=== PATIENT | male | born 1935 | race Caucasian/White ===

== ENCOUNTER 2018-12-22 21:40 | Inpatient (IN) | payer MEDICARE, OTHER ==
[~2018-12-22] VITALS: Ht 157.5 cm; Wt 59.0 kg
[~2018-12-22 21:40] MED LIST: ACET1TAB14 PO; ATOR10TA87 PO; BACL20TA PO; CARI350T27 PO; CETI10CA PO; DIPH25CA83 PO; FERR325T28 PO; GABA-532 PO; IBUP-1984 PO; METO25TA6 PO; NITR0.4T51 SL; POTA10TA15 PO; RABE20TA18 PO; RANI150T8 PO; TRIA1CAP6 PO
[2018-12-22 22:41] LABS: BASOPHILS % (AUTO) 0.5 % (0-1); EOSINOPHILS % (AUTO) 0 % (0-6); HEMATOCRIT 35.9 % (42.0-52.0); HEMOGLOBIN 12.1 g/dl (14.0-17.9); LYMPHOCYTES # (AUTO) 1.3 X10'3 (1.1-4.8); LYMPHOCYTES % (AUTO) 15.5 % (21-51); MEAN CORPUSCULAR HEMOGLOBIN 29.2 PG (27.0-31.0); MEAN CORPUSCULAR HGB CONC 33.6 g/dL (33.0-36.5); MEAN CORPUSCULAR VOLUME 87.1 FL (78-98); MONOCYTES # (AUTO) 0.4 X10'3 (0-0.9); NEUTROPHILS # (AUTO) 6.6 X10'3 (1.8-7.7); PLATELET COUNT 390 X10'3 (140-440); RED BLOOD COUNT 4.13 X10'6 (4.70-6.10); RED CELL DISTRIBUTION WIDTH 13.1 % (11.5-14.5); WHITE BLOOD COUNT 8.4 X10'3 (4.5-11.0)
[2018-12-22 22:52] LABS: ALANINE AMINOTRANSFERASE 16 U/L (12-78); ALBUMIN 2.8 G/DL (3.4-5.0); ALBUMIN/GLOBULIN RATIO 0.7 (1.1-1.5); ALKALINE PHOSPHATASE 96 IU/L (46-116); ANION GAP 11 (8-16); ASPARTATE AMINO TRANSFERASE 11 U/L (10-37); BILIRUBIN,TOTAL 0.5 MG/DL (0.1-1.0); BLOOD UREA NITROGEN 29 MG/DL (7-18); CHLORIDE 97 MMOL/L (99-107); CREATININE 1.32 MG/DL (0.60-1.10); GLUCOSE 117 MG/DL (70-104); SODIUM 134 MMOL/L (135-145); TOTAL CARBON DIOXIDE 26.4 MMOL/L (24-32); TOTAL PROTEIN 7.1 G/DL (6.4-8.2); eGFR 52 ML/MIN
[2018-12-22 22:55] LABS: POTASSIUM 2.7 MMOL/L (3.5-5.1)
[2018-12-22] MEDS ORDERED: potassium Cl 10 mEq/100mL bag IV ONE (23:00)
[2018-12-22] MEDS ORDERED: magnesium 2GM in 50ml NS 50 ML IV ONE (23:00)
[2018-12-22 23:12] LABS: CLARITY,URINE CLEAR (Clear); COLOR,URINE YELLOW (Yellow); GLUCOSE, URINE NEGATIVE (Neg); KETONES,URINE TRACE mg/dl (Neg); LEUKOCYTE ESTERASE ,URINE NEGATIVE (Neg); NITRITES, URINE NEGATIVE (Neg); OCCULT BLOOD,URINE NEGATIVE (Neg); PH,URINE 6.5 (4.8-8.0); PROTEIN,URINE 30 mg/dl (Neg); UROBILINOGEN,URINE 0.2 E.U/dL (0.2-1.0)
[2018-12-22 23:17] LABS: UA COLLECTION TYPE NON-SPECIFIED
[2018-12-22 23:19] LABS: BACTERIA,URINE NONE SEEN /HPF (Neg); HYALINE CASTS 0-3 /LPF (NEGATIVE); MUCUS STRANDS NONE SEEN /LPF (Neg); RBC,URINE NONE SEEN /HPF (0-2); SQUAMOUS EPITHELIAL CELL,UR FEW /LPF (FEW); WBC,URINE NONE SEEN /HPF (0-4)
[2018-12-22] MEDS ORDERED: ondansetron/PF 4mg/2ml inj IV ONE (23:35)
[2018-12-22] MEDS ORDERED: pantoprazole IV 80 MG in normal saline 100ml IV soln 100 ML IV ONE (23:35)
[2018-12-22] MEDS ORDERED: morphine 4 MG/ML inj SYRINge IV ONE (23:35)
[2018-12-22] MEDS ORDERED: METH750T3 PO (23:44)
[2018-12-22] MEDS ORDERED: IBUP-1986 PO (23:44)
[2018-12-22] MEDS: pantoprazole 40MG/NS 100ML BAG 100 ML IV SCH (23:48)
[2018-12-22] MEDS ORDERED: GABA-532 PO (23:54)
[2018-12-23] MEDS ORDERED: potassium Cl 10 mEq/100mL bag IV ONE (00:25)
[2018-12-23] MEDS: pantoprazole 40MG/NS 100ML BAG 100 ML IV SCH ×2 (01:00→05:09)
[2018-12-23] MEDS ORDERED: morphine 4 MG/ML inj SYRINge IV ONE (01:35)
[2018-12-23] MEDS ORDERED: magnesium 4gm in 100ml NS 100 ML IV PRN (01:45)
[2018-12-23] MEDS ORDERED: mag hydrox/Alum hydrox/simeth 30ml oral suspension PO PRN (01:45)
[2018-12-23] MEDS ORDERED: magnesium 2GM in 50ml NS 50 ML IV PRN (01:45)
[2018-12-23] MEDS ORDERED: nitroGLYCERIN 0.4mg SUBLingual tab SL PRN (01:45)
[2018-12-23] MEDS ORDERED: potassium Cl 20 mEq SR tablet PO PRN (01:45)
[2018-12-23] MEDS ORDERED: acetaminophen 325mg tablet PO PRN (01:45)
[2018-12-23] MEDS ORDERED: potassium CL 10mEq/100ml bag 100 ML IV PRN ×2 (01:45)
[2018-12-23] MEDS: normal saline 1000ml 1,000 ML IV SCH ×2 (01:53→21:40)
[2018-12-23] MEDS: cyclobenzaprine 10mg tablet PO PRN ×3 (02:14→17:12)
[2018-12-23] MEDS: ondansetron/PF 4mg/2ml inj IV PRN ×3 (02:14→17:13)
[2018-12-23] MEDS ORDERED: HYDROmorphone inj. 0.5 MG/0.5 ML DISP.SYRIN IV PRN (02:20)
--- NOTE | 2018-12-23 02:30 | NUR ---
Patient in room ORTHO 4020. I have received report from STEFANIE Orantes and had the opportunity to ask questions and assume patient care.
[2018-12-23] MEDS: HYDROmorphone 1 mg/ml syringe IV PRN ×5 (02:55→21:35)
[2018-12-23 03:22] VITALS: BP 171/70
[2018-12-23 06:00] VITALS: BP 157/73
[2018-12-23] MEDS ORDERED: pantoprazole 40MG/NS 100ML BAG 100 ML IV SCH (06:00)
--- NOTE | 2018-12-23 06:10 | NUR ---
Patient in room ORTHO 4020. I have received report from Gracie WATTS and had the opportunity to ask questions and assume patient care.
[2018-12-23 06:11] LABS: BASOPHILS % (AUTO) 0.4 % (0-1); EOSINOPHILS % (AUTO) 0.3 % (0-6); HEMATOCRIT 31.8 % (42.0-52.0); HEMOGLOBIN 10.7 g/dl (14.0-17.9); LYMPHOCYTES # (AUTO) 1.3 X10'3 (1.1-4.8); LYMPHOCYTES % (AUTO) 18.2 % (21-51); MEAN CORPUSCULAR HEMOGLOBIN 29.7 PG (27.0-31.0); MEAN CORPUSCULAR HGB CONC 33.8 g/dL (33.0-36.5); MEAN CORPUSCULAR VOLUME 87.8 FL (78-98); MEAN PLATELET VOLUME 7.1 FL (7.4-10.4); MONOCYTES # (AUTO) 0.5 X10'3 (0-0.9); MONOCYTES % (AUTO) 7.1 % (2-12); NEUTROPHILS # (AUTO) 5.3 X10'3 (1.8-7.7); PLATELET COUNT 338 X10'3 (140-440); RED BLOOD COUNT 3.62 X10'6 (4.70-6.10); WHITE BLOOD COUNT 7.1 X10'3 (4.5-11.0)
--- NOTE | 2018-12-23 06:19 | NUR ---
Gave report to Arabella WATTS with Gracie WATTS.
[2018-12-23 07:57] LABS: ALBUMIN 2.3 G/DL (3.4-5.0); ANION GAP 9 (8-16); BLOOD UREA NITROGEN 25 MG/DL (7-18); BUN/CREATININE RATIO 23.6 (5.4-32.0); CALCIUM 8.4 MG/DL (8.5-10.1); CHLORIDE 104 MMOL/L (99-107); CREATININE 1.06 MG/DL (0.60-1.10); GLUCOSE 99 MG/DL (70-104); SODIUM 140 MMOL/L (135-145); TOTAL CARBON DIOXIDE 26.6 MMOL/L (24-32); eGFR 67 ML/MIN
[2018-12-23 08:00] LABS: POTASSIUM 2.8 MMOL/L (3.5-5.1)
--- NOTE | 2018-12-23 08:12 | NUR ---
PAGER ID: [phone] MESSAGE: RE: [id number] Sha Joe. Critical K+ 2.8, patient is on protocol, replacing now. [place] [phone]
[2018-12-23] MEDS: K and/or MAG REPLACEMENT MC SCH (08:58)
[2018-12-23] MEDS: potassium Cl 20 mEq SR tablet PO PRN ×3 (08:58→17:08)
[2018-12-23] MEDS: triamterene/HCTZ 37.5/25mg tablet PO SCH (08:58)
[2018-12-23 10:00] VITALS: BP 140/72
[2018-12-23 10:42] LABS: BASOPHILS % (AUTO) 0.7 % (0-1); EOSINOPHILS # (AUTO) 0.1 X10'3 (0-0.9); EOSINOPHILS % (AUTO) 1.4 % (0-6); HEMATOCRIT 32.9 % (42.0-52.0); HEMOGLOBIN 10.9 g/dl (14.0-17.9); LYMPHOCYTES # (AUTO) 1.3 X10'3 (1.1-4.8); LYMPHOCYTES % (AUTO) 20.7 % (21-51); MEAN CORPUSCULAR HEMOGLOBIN 28.7 PG (27.0-31.0); MEAN CORPUSCULAR HGB CONC 33.2 g/dL (33.0-36.5); MEAN CORPUSCULAR VOLUME 86.5 FL (78-98); MONOCYTES # (AUTO) 0.5 X10'3 (0-0.9); MONOCYTES % (AUTO) 8.2 % (2-12); NEUTROPHILS # (AUTO) 4.4 X10'3 (1.8-7.7); PLATELET COUNT 299 X10'3 (140-440); RED CELL DISTRIBUTION WIDTH 13.1 % (11.5-14.5); WHITE BLOOD COUNT 6.4 X10'3 (4.5-11.0)
--- NOTE | 2018-12-23 11:58 | NUR ---
Malnutrition consult: Pt admit w/ coffee ground emesis, intractable N/V 5 days prior found to have UGIB r/t gastritis from ibuprofen per MD note. Pending EGD. Pt advanced to regular diet from NPO pending first meal but eats slow able to tolerate applesauce per RN. Pt unable to wake during RD visit. Current wt is pt stated w/ no other wt hx, no edema/wounds, mild weakness, and mild visible muscle wasting to temples. At this time pt lacks at least 2 minimum malnutrition criteria; will monitor PO hx for additional criteria this admit. Addendum: 12/23/18 at [address] Amended: Links added.
--- NOTE | 2018-12-23 12:37 | NUR ---
Wound consult: Pt has spinal abrasion w/ skin intact no open wounds noted. See prior note for additional nutrition status; malnutrition criteria pending. Addendum: 12/23/18 at [address] Amended: Links added.
[2018-12-23 13:22] LABS: BASOPHILS % (AUTO) 0.4 % (0-1); EOSINOPHILS # (AUTO) 0.1 X10'3 (0-0.9); HEMOGLOBIN 11.8 g/dl (14.0-17.9); LYMPHOCYTES % (AUTO) 25.1 % (21-51); MEAN CORPUSCULAR HEMOGLOBIN 29.4 PG (27.0-31.0); MEAN CORPUSCULAR HGB CONC 33.6 g/dL (33.0-36.5); MEAN CORPUSCULAR VOLUME 87.6 FL (78-98); MEAN PLATELET VOLUME 7.4 FL (7.4-10.4); MONOCYTES # (AUTO) 0.4 X10'3 (0-0.9); MONOCYTES % (AUTO) 5.5 % (2-12); NEUTROPHILS # (AUTO) 5.3 X10'3 (1.8-7.7); PLATELET COUNT 326 X10'3 (140-440); WHITE BLOOD COUNT 7.8 X10'3 (4.5-11.0)
[2018-12-23 15:54] LABS: BASOPHILS % (AUTO) 0.3 % (0-1); EOSINOPHILS # (AUTO) 0.1 X10'3 (0-0.9); EOSINOPHILS % (AUTO) 1.7 % (0-6); HEMATOCRIT 32.5 % (42.0-52.0); HEMOGLOBIN 10.8 g/dl (14.0-17.9); LYMPHOCYTES # (AUTO) 1.3 X10'3 (1.1-4.8); LYMPHOCYTES % (AUTO) 19.7 % (21-51); MEAN CORPUSCULAR HEMOGLOBIN 29.1 PG (27.0-31.0); MEAN CORPUSCULAR HGB CONC 33.3 g/dL (33.0-36.5); MEAN CORPUSCULAR VOLUME 87.5 FL (78-98); MEAN PLATELET VOLUME 6.9 FL (7.4-10.4); MONOCYTES # (AUTO) 0.5 X10'3 (0-0.9); MONOCYTES % (AUTO) 7.3 % (2-12); NEUTROPHILS # (AUTO) 4.9 X10'3 (1.8-7.7); PLATELET COUNT 298 X10'3 (140-440); RED BLOOD COUNT 3.71 X10'6 (4.70-6.10); RED CELL DISTRIBUTION WIDTH 13.3 % (11.5-14.5); WHITE BLOOD COUNT 6.8 X10'3 (4.5-11.0)
[2018-12-23 18:00] VITALS: BP 151/68
[2018-12-23 18:24] LABS: BASOPHILS % (AUTO) 0.3 % (0-1); EOSINOPHILS # (AUTO) 0.1 X10'3 (0-0.9); HEMATOCRIT 33.5 % (42.0-52.0); HEMOGLOBIN 11.2 g/dl (14.0-17.9); LYMPHOCYTES # (AUTO) 1.5 X10'3 (1.1-4.8); LYMPHOCYTES % (AUTO) 23.3 % (21-51); MEAN CORPUSCULAR HEMOGLOBIN 29.3 PG (27.0-31.0); MEAN CORPUSCULAR HGB CONC 33.6 g/dL (33.0-36.5); MEAN CORPUSCULAR VOLUME 87.3 FL (78-98); MEAN PLATELET VOLUME 7.2 FL (7.4-10.4); MONOCYTES # (AUTO) 0.4 X10'3 (0-0.9); MONOCYTES % (AUTO) 6.4 % (2-12); NEUTROPHILS # (AUTO) 4.4 X10'3 (1.8-7.7); PLATELET COUNT 316 X10'3 (140-440); RED BLOOD COUNT 3.84 X10'6 (4.70-6.10); WHITE BLOOD COUNT 6.5 X10'3 (4.5-11.0)
--- NOTE | 2018-12-23 18:25 | NUR ---
Problems reprioritized. Patient report given, questions answered & plan of care reviewed with Gracie WATTS.
--- NOTE | 2018-12-23 18:57 | NUR ---
Patient in room ORTHO 4020. I have received report from STEFANIE Villela and had the opportunity to ask questions and assume patient care.
[2018-12-23] MEDS: docusate sod 100mg capsule PO PRN (21:40)
[2018-12-23 22:00] VITALS: BP 140/67
--- NOTE | 2018-12-24 00:56 | NUR ---
phoned Wendie for Gracie WATTS, asked to d/c q6 CBC draws for pt. he has had no signs of active bleeding, stable H/H. instructed to d/c q6 CBC, continue AM CBC lab draws.
[2018-12-24] MEDS: normal saline 1000ml 1,000 ML IV SCH (02:11)
[2018-12-24] MEDS: cyclobenzaprine 10mg tablet PO PRN ×2 (02:14→10:58)
[2018-12-24] MEDS: HYDROmorphone 1 mg/ml syringe IV PRN ×2 (02:14→06:27)
[2018-12-24] MEDS ORDERED: benzocaine/menthol oral lozeng 1 EACH BOX MM PRN (05:30)
[2018-12-24 06:27] LABS: ALANINE AMINOTRANSFERASE 18 U/L (12-78); ALBUMIN 2.3 G/DL (3.4-5.0); ALBUMIN/GLOBULIN RATIO 0.6 (1.1-1.5); ALKALINE PHOSPHATASE 79 IU/L (46-116); ANION GAP 6 (8-16); ASPARTATE AMINO TRANSFERASE 18 U/L (10-37); BILIRUBIN,TOTAL 0.4 MG/DL (0.1-1.0); BLOOD UREA NITROGEN 18 MG/DL (7-18); BUN/CREATININE RATIO 17.3 (5.4-32.0); CALCIUM 8.7 MG/DL (8.5-10.1); CHLORIDE 103 MMOL/L (99-107); CREATININE 1.04 MG/DL (0.60-1.10); GLUCOSE 90 MG/DL (70-104); MAGNESIUM 1.9 MG/DL (1.5-2.4); POTASSIUM 4.3 MMOL/L (3.5-5.1); SODIUM 135 MMOL/L (135-145); TOTAL CARBON DIOXIDE 25.7 MMOL/L (24-32); TOTAL PROTEIN 5.9 G/DL (6.4-8.2); eGFR 69 ML/MIN
[2018-12-24 06:30] VITALS: BP 158/66
--- NOTE | 2018-12-24 06:30 | NUR ---
Problems reprioritized. Patient report given, questions answered & plan of care reviewed with STEFANIE Tapia.
[2018-12-24] MEDS: docusate sod 100mg capsule PO PRN (06:32)
--- NOTE | 2018-12-24 06:42 | NUR ---
Patient in room ORTHO 4020. I have received report from Gracie and had the opportunity to ask questions and assume patient care.
[2018-12-24] MEDS: triamterene/HCTZ 37.5/25mg tablet PO SCH (07:10)
[2018-12-24] MEDS: K and/or MAG REPLACEMENT MC SCH (07:11)
[2018-12-24 08:04] LABS: BASOPHILS % (AUTO) 0.7 % (0-1); EOSINOPHILS # (AUTO) 0.5 X10'3 (0-0.9); HEMATOCRIT 30.3 % (42.0-52.0); HEMOGLOBIN 10.2 g/dl (14.0-17.9); LYMPHOCYTES # (AUTO) 1.6 X10'3 (1.1-4.8); LYMPHOCYTES % (AUTO) 23.6 % (21-51); MEAN CORPUSCULAR HEMOGLOBIN 29.2 PG (27.0-31.0); MEAN CORPUSCULAR HGB CONC 33.6 g/dL (33.0-36.5); MEAN CORPUSCULAR VOLUME 86.9 FL (78-98); MEAN PLATELET VOLUME 6.9 FL (7.4-10.4); MONOCYTES # (AUTO) 0.5 X10'3 (0-0.9); MONOCYTES % (AUTO) 7.3 % (2-12); NEUTROPHILS # (AUTO) 4.2 X10'3 (1.8-7.7); NEUTROPHILS % (AUTO) 61.4 % (42-75); PLATELET COUNT 295 X10'3 (140-440); RED BLOOD COUNT 3.49 X10'6 (4.70-6.10); RED CELL DISTRIBUTION WIDTH 12.8 % (11.5-14.5); WHITE BLOOD COUNT 6.9 X10'3 (4.5-11.0)
[2018-12-24] MEDS ORDERED: magnesium citrate 296ml oral solution PO ONE (08:45)
[2018-12-24 10:00] VITALS: BP 131/63
[2018-12-24] MEDS ORDERED: methylnaltrexone br 12mg/0.6ml inj***SubQ only SQ ONE (12:25)
--- NOTE | 2018-12-24 14:49 | NUR ---
F/u: Pt PO 50% avg past 2 meals decent given age. No edema/wounds, no significant weakness, and lack of additional malnutrition criteria at this time. Will monitor for additional criteria this admit. Addendum: 12/24/18 at [address] Amended: Links added.
[2018-12-24] MEDS ORDERED: COL100C PO (15:44)
[2018-12-24] MEDS ORDERED: MAGN800O PO (15:44)
--- NOTE | 2018-12-24 18:00 | NUR ---
Patient in room ORTHO 4020. I have received report from Regina WATTS and had the opportunity to ask questions and assume patient care. Patient finished dinner, will continue to monitor.
--- NOTE | 2018-12-24 18:13 | NUR ---
Problems reprioritized. Patient report given, questions answered & plan of care reviewed with faye.
--- NOTE | 2018-12-24 18:13 | NUR ---
IV dc'd. Scripts and follow up appointments gone over with pt. Verbalizes understanding. Pt has called to come and pick him up.
--- NOTE | 2018-12-24 18:25 | NUR ---
Patient escorted to [facility] due to discharge papers complete and IV removed on in anticipation of 's arrival to take patient home. Left with discharge instructions and belongings in hand. Patient alert and oriented and states he is headed home. Left at 1825 via wheelchair from unit.
== END 2018-12-24 18:25 | disposition home or self-care (01) | DRG 683 ==
LOC: ER 21:40 → ORTHO 4S 12-23 02:16 → CMPBEDREQ 12-23 02:19
PROVIDERS: ADMIT Family Medicine; ATTEND Internal Medicine
DX: N17.9 Acute kidney failure, unspecified (principal); E87.1 Hypo-osmolality and hyponatremia; K59.00 Constipation, unspecified; E87.6 Hypokalemia; E78.5 Hyperlipidemia, unspecified; I10 Essential (primary) hypertension; I25.10 Atherosclerotic heart disease of native coronary artery without angina pectoris; K21.9 Gastro-esophageal reflux disease without esophagitis; D64.9 Anemia, unspecified; G89.29 Other chronic pain; T40.605A Adverse effect of unspecified narcotics, initial encounter; E86.0 Dehydration; M54.5 Low back pain; K76.89 Other specified diseases of liver; Z79.899 Other long term (current) drug therapy; Z82.49 Family history of ischemic heart disease and other diseases of the circulatory system; Z82.5 Family history of asthma and other chronic lower respiratory diseases; I25.2 Old myocardial infarction; Z87.11 Personal history of peptic ulcer disease; Z88.6 Allergy status to analgesic agent; Z88.5 Allergy status to narcotic agent; Z88.0 Allergy status to penicillin; Z91.018 Allergy to other foods; Y92.89 Other specified places as the place of occurrence of the external cause
CPT/HCPCS: 36415; 74176; 80048; 80053; 81001; 83605; 83735; 84132; 85025; 85610; 86885; 86900; 86901; 87040; 87081; 96361; 96365; 96366; 96375; 99285; C9113; G0378; J1170; J2212; J2270; J2405; J3475; J3480; J7030

== ENCOUNTER 2021-04-17 10:26 | Inpatient (IN) | payer OTHER, MEDICARE ==
[~2021-04-17] VITALS: Ht 177.8 cm; Wt 72.3 kg
[~2021-04-17 10:26] MED LIST changes: -ATOR10TA87 PO; -BACL20TA PO; -CARI350T27 PO; -CETI10CA PO; +COL100C PO; -FERR325T28 PO; -IBUP-1984 PO; +IBUP-1986 PO; +MAGN24002 PO; +METH-798 PO; -METO25TA6 PO; -POTA10TA15 PO; -RABE20TA18 PO
[2021-04-17 10:54] LABS: BASOPHILS # (AUTO) 0.1 X10'3 (0-0.2); BASOPHILS % (AUTO) 1.2 % (0-1); EOSINOPHILS # (AUTO) 0.5 X10'3 (0-0.9); EOSINOPHILS % (AUTO) 6.5 % (0-6); HEMATOCRIT 32.9 % (42.0-52.0); LYMPHOCYTES % (AUTO) 27.6 % (21-51); MEAN CORPUSCULAR HGB CONC 33.6 g/dL (33.0-36.5); MEAN CORPUSCULAR VOLUME 92.4 FL (78-98); MEAN PLATELET VOLUME 7.1 FL (7.4-10.4); MONOCYTES # (AUTO) 0.3 X10'3 (0-0.9); MONOCYTES % (AUTO) 4.4 % (2-12); NEUTROPHILS # (AUTO) 4.3 X10'3 (1.8-7.7); NEUTROPHILS % (AUTO) 60.3 % (42-75); PLATELET COUNT 241 X10'3 (140-440); RED BLOOD COUNT 3.56 X10'6 (4.70-6.10); RED CELL DISTRIBUTION WIDTH 13.5 % (11.5-14.5); WHITE BLOOD COUNT 7.1 X10'3 (4.5-11.0)
[2021-04-17] MEDS ORDERED: ondansetron/PF 4mg/2ml inj IV ONE (11:05)
[2021-04-17] MEDS ORDERED: fentaNYL/PF 50MCG/1 ML 2ML syringe IV ONE (11:05)
[2021-04-17 11:09] LABS: D-DIMER 0.96 MG/L FEU (0-0.50)
[2021-04-17 11:13] LABS: ALANINE AMINOTRANSFERASE 14 U/L (12-78); ALBUMIN 3.5 G/DL (3.4-5.0); ALBUMIN/GLOBULIN RATIO 0.9 (1.1-1.5); ALKALINE PHOSPHATASE 87 IU/L (46-116); ANION GAP 10 (8-16); ASPARTATE AMINO TRANSFERASE 12 U/L (10-37); BILIRUBIN,TOTAL 0.5 MG/DL (0.1-1.0); BLOOD UREA NITROGEN 20 MG/DL (7-18); BUN/CREATININE RATIO 11.2 (5.4-32.0); CALCIUM 8.9 MG/DL (8.5-10.1); CHLORIDE 99 MMOL/L (99-107); CREATININE 1.79 MG/DL (0.60-1.10); GLUCOSE 100 MG/DL (70-104); POTASSIUM 5.3 MMOL/L (3.5-5.1); SODIUM 136 MMOL/L (135-145); TOTAL CARBON DIOXIDE 26.6 MMOL/L (24-32); TOTAL PROTEIN 7.4 G/DL (6.4-8.2); eGFR 36 ML/MIN
[2021-04-17] MEDS ORDERED: acetaminophen 325mg tablet PO PRN ×2 (12:45)
[2021-04-17] MEDS ORDERED: magnesium hydroxide 30ml (MOM) UD suspension PO PRN (12:45)
[2021-04-17] MEDS ORDERED: ondansetron/PF 4mg/2ml inj IV PRN (12:45)
[2021-04-17] MEDS ORDERED: mag hydrox/Alum hydrox/simeth 30ml oral suspension PO PRN (12:45)
[2021-04-17] MEDS ORDERED: morphine 2 MG/ML inj. syringe IV PRN (12:45)
[2021-04-17] MEDS ORDERED: HYDROcodone/acetaminophen 5mg/325mg tablet PO PRN (12:45)
[2021-04-17] MEDS ORDERED: nitroGLYCERIN 0.4mg SUBLingual tab SL PRN ×2 (12:45→12:50)
[2021-04-17] MEDS ORDERED: aminophylline 250mg/10ml inj. IV PRN (12:50)
[2021-04-17] MEDS ORDERED: regadenoson 0.4mg/5ml syringe IV ONE (12:50)
[2021-04-17] MEDS ORDERED: metoprolol tartrate 1mg/ml inj IV PRN (12:50)
[2021-04-17] MEDS ORDERED: CIME200T95 PO (13:07)
[2021-04-17] MEDS ORDERED: GABA300C PO (13:07)
[2021-04-17] MEDS ORDERED: METO50TA17 PO (13:07)
[2021-04-17] MEDS ORDERED: TRIA1TAB3 PO (13:17)
[2021-04-17] MEDS ORDERED: ISOS30TA84 PO (13:17)
[2021-04-17] MEDS: furosemide 20 MG/2 ML vial IV SCH ×2 (13:42→20:30)
[2021-04-17] MEDS ORDERED: acetaminophen w/codeine (60MG) #4 tablet PO PRN (16:30)
[2021-04-17] MEDS: HYDROcodone/acetaminophen 10/325mg tab PO PRN ×2 (17:37→23:14)
[2021-04-17] MEDS: gabapentin 300mg capsule PO SCH ×2 (17:37→20:31)
--- NOTE | 2021-04-17 20:06 | NUR ---
pt was ambulating to bathroom indep. ad started experiencing left sided chx pain that radiated to sternal region. repeat ekg ordered. denied sob and no signs of distress
[2021-04-17] MEDS: docusate sod 100mg capsule PO SCH (20:31)
[2021-04-17] MEDS: metoprolol tartrate 50mg tablet PO SCH (20:32)
[2021-04-17] MEDS: morphine 2 MG/ML inj. syringe IV PRN (22:24)
--- NOTE | 2021-04-17 22:48 | NUR ---
2-3 day old circular lesion noted on the base of patients lumbar spine. pt reports wound was there prior to arrival. no signs of infection noted. no drainage or active bleeding
--- NOTE | 2021-04-18 | NUR ---
Pt notified of NPO status and pt verbalized understanding. Pt denied pain at this time.
[2021-04-18 02:02] LABS: BASOPHILS # (AUTO) 0.1 X10'3 (0-0.2); BASOPHILS % (AUTO) 0.7 % (0-1); EOSINOPHILS # (AUTO) 0.3 X10'3 (0-0.9); EOSINOPHILS % (AUTO) 2.8 % (0-6); HEMOGLOBIN 13.8 g/dl (14.0-17.9); LYMPHOCYTES # (AUTO) 0.9 X10'3 (1.1-4.8); LYMPHOCYTES % (AUTO) 9.8 % (21-51); MEAN CORPUSCULAR HEMOGLOBIN 31.6 PG (27.0-31.0); MEAN CORPUSCULAR HGB CONC 34.5 g/dL (33.0-36.5); MEAN CORPUSCULAR VOLUME 91.7 FL (78-98); MEAN PLATELET VOLUME 7.4 FL (7.4-10.4); MONOCYTES # (AUTO) 0.4 X10'3 (0-0.9); MONOCYTES % (AUTO) 4.1 % (2-12); NEUTROPHILS # (AUTO) 7.6 X10'3 (1.8-7.7); NEUTROPHILS % (AUTO) 82.6 % (42-75); PLATELET COUNT 313 X10'3 (140-440); RED BLOOD COUNT 4.36 X10'6 (4.70-6.10); RED CELL DISTRIBUTION WIDTH 13.3 % (11.5-14.5); WHITE BLOOD COUNT 9.2 X10'3 (4.5-11.0)
[2021-04-18 02:09] LABS: ALBUMIN 3.9 G/DL (3.4-5.0); ANION GAP 10 (8-16); BLOOD UREA NITROGEN 22 MG/DL (7-18); BUN/CREATININE RATIO 12.7 (5.4-32.0); CALCIUM 9.9 MG/DL (8.5-10.1); CHLORIDE 97 MMOL/L (99-107); CREATININE 1.73 MG/DL (0.60-1.10); GLUCOSE 131 MG/DL (70-104); POTASSIUM 3.5 MMOL/L (3.5-5.1); SODIUM 137 MMOL/L (135-145); TOTAL CARBON DIOXIDE 30.4 MMOL/L (24-32); eGFR 38 ML/MIN
[2021-04-18] MEDS: HYDROcodone/acetaminophen 10/325mg tab PO PRN ×2 (06:50→20:49)
[2021-04-18 07:44] VITALS: BP 164/89
[2021-04-18] MEDS: enoxaparin 40mg/0.4ml syringe SUBCUT SCH (09:23)
[2021-04-18] MEDS: aspirin 81mg, enteric-coated 1 TAB TABLET.DR PO SCH (09:23)
[2021-04-18] MEDS: cyclobenzaprine 10mg tablet PO PRN ×2 (09:23→20:53)
[2021-04-18] MEDS: docusate sod 100mg capsule PO SCH ×2 (09:23→20:49)
[2021-04-18] MEDS: metoprolol tartrate 50mg tablet PO SCH ×2 (09:24→20:53)
[2021-04-18] MEDS: furosemide 20 MG/2 ML vial IV SCH ×2 (09:24→20:49)
[2021-04-18] MEDS: gabapentin 300mg capsule PO SCH ×4 (09:24→20:53)
[2021-04-18] MEDS: morphine 2 MG/ML inj. syringe IV PRN (09:25)
[2021-04-18 11:11] VITALS: BP 127/75
[2021-04-18 15:15] VITALS: BP 179/70
--- NOTE | 2021-04-18 21:00 | NUR ---
Pt in bed resting, voiced no complaints. Skin assessment done and lower back wound noted. Picture taken and placed in the chart. wound care consult ordered. call light and bedside table placed within reach. Pt instructed to call for assistance as needed.
[2021-04-18 22:00] VITALS: BP 155/65
[2021-04-19] VITALS (12 sets, daily range): BP systolic 112–147; BP diastolic 59–76
[2021-04-19] MEDS: HYDROcodone/acetaminophen 10/325mg tab PO PRN (03:57)
--- NOTE | 2021-04-19 06:21 | NUR ---
Patient in room PCU 3015. I have received report from STEFANIE Nuñez and had the opportunity to ask questions and assume patient care.
--- NOTE | 2021-04-19 06:43 | NUR ---
NPO status teaching reinforcement done, pt verbalized understanding.
[2021-04-19] MEDS ORDERED: aminophylline 250mg/10ml inj. IV PRN (06:45)
[2021-04-19] MEDS ORDERED: regadenoson 0.4mg/5ml syringe IV PRN (06:45)
[2021-04-19] MEDS ORDERED: nitroGLYCERIN 0.4mg SUBLingual tab SL PRN (06:45)
[2021-04-19] MEDS ORDERED: metoprolol tartrate 1mg/ml inj IV PRN (06:45)
[2021-04-19 07:44] LABS: ALBUMIN 3.9 G/DL (3.4-5.0); ANION GAP 13 (8-16); BLOOD UREA NITROGEN 35 MG/DL (7-18); BUN/CREATININE RATIO 16.5 (5.4-32.0); CALCIUM 10.5 MG/DL (8.5-10.1); CHLORIDE 92 MMOL/L (99-107); CREATININE 2.12 MG/DL (0.60-1.10); GLUCOSE 116 MG/DL (70-104); POTASSIUM 3.9 MMOL/L (3.5-5.1); SODIUM 134 MMOL/L (135-145); TOTAL CARBON DIOXIDE 29.4 MMOL/L (24-32); eGFR 30 ML/MIN
[2021-04-19 08:42] LABS: BASOPHILS # (AUTO) 0.1 X10'3 (0-0.2); BASOPHILS % (AUTO) 0.8 % (0-1); EOSINOPHILS # (AUTO) 0.2 X10'3 (0-0.9); HEMATOCRIT 39.1 % (42.0-52.0); HEMOGLOBIN 13.4 g/dl (14.0-17.9); LYMPHOCYTES # (AUTO) 1.7 X10'3 (1.1-4.8); LYMPHOCYTES % (AUTO) 18.2 % (21-51); MEAN CORPUSCULAR HEMOGLOBIN 31.7 PG (27.0-31.0); MEAN CORPUSCULAR HGB CONC 34.2 g/dL (33.0-36.5); MEAN CORPUSCULAR VOLUME 92.8 FL (78-98); MEAN PLATELET VOLUME 7.5 FL (7.4-10.4); MONOCYTES # (AUTO) 0.7 X10'3 (0-0.9); MONOCYTES % (AUTO) 7.3 % (2-12); NEUTROPHILS # (AUTO) 6.6 X10'3 (1.8-7.7); NEUTROPHILS % (AUTO) 71.7 % (42-75); PLATELET COUNT 294 X10'3 (140-440); RED BLOOD COUNT 4.22 X10'6 (4.70-6.10); RED CELL DISTRIBUTION WIDTH 13.6 % (11.5-14.5); WHITE BLOOD COUNT 9.2 X10'3 (4.5-11.0)
--- NOTE | 2021-04-19 09:31 | NUR ---
Noted pt on a mechanical soft chop all diet with pudding thick liquids. TC to RN though RN unavailable, message left with another RN regarding reassessing patient's diet order and need for thickened liquids vs ST consult for BSS if pt having difficulty swallowing. Addendum: 04/19/21 at [address] Amended: Links added.
[2021-04-19] MEDS: gabapentin 300mg capsule PO SCH ×2 (11:08→12:29)
[2021-04-19] MEDS: metoprolol tartrate 50mg tablet PO SCH (11:08)
[2021-04-19] MEDS: docusate sod 100mg capsule PO SCH (11:09)
[2021-04-19] MEDS: furosemide 20 MG/2 ML vial IV SCH (11:09)
--- NOTE | 2021-04-19 11:46 | NUR ---
Paged Jean Delvalle [phone] [id number] Candy resulted. No evidence of ischemia. Thanks Keisha [phone]
[2021-04-19] MEDS ORDERED: FURO-150 PO (12:17)
[2021-04-19] MEDS ORDERED: OMEP20CA15 PO (12:17)
[2021-04-19] MEDS: aspirin 81mg, enteric-coated 1 TAB TABLET.DR PO SCH (12:26)
[2021-04-19] MEDS: enoxaparin 40mg/0.4ml syringe SUBCUT SCH (12:27)
--- NOTE | 2021-04-19 14:30 | NUR ---
Pt stable for discharge per md orders. All pt belongings collected and sent with pt. All instructions were given, questions answered appropriately. PIV discontinued, cannula intact. Tele discontinued, telephone sales agent notified. New RX sent to [facility] in [place]. Informed pt to follow up with PCP within one week. Wheeled pt to lobby, assisted into friend's vehicle.
== END 2021-04-19 14:30 | disposition home or self-care (01) | DRG 292 ==
LOC: ER 10:27 → ED HOLD 12:45 → PCU 3S 04-18 07:30
PROVIDERS: ADMIT Internal Medicine; ATTEND Internal Medicine
PROC: 4A02XM4 Measurement of Cardiac Total Activity, External Approach (ICD-10-PCS; principal; 2021-04-19)
PROC: 3E073KZ Introduction of Other Diagnostic Substance into Coronary Artery, Percutaneous Approach (ICD-10-PCS; 2021-04-19)
DX: I50.33 Acute on chronic diastolic (congestive) heart failure (principal); F11.20 Opioid dependence, uncomplicated; N17.9 Acute kidney failure, unspecified; R07.89 Other chest pain; I08.0 Rheumatic disorders of both mitral and aortic valves; G89.29 Other chronic pain; Z20.822 Contact with and (suspected) exposure to COVID-19; T50.2X5A Adverse effect of carbonic-anhydrase inhibitors, benzothiadiazides and other diuretics, initial encounter; N18.30 Chronic kidney disease, stage 3 unspecified; M54.9 Dorsalgia, unspecified; I25.2 Old myocardial infarction; Z79.899 Other long term (current) drug therapy; Z82.5 Family history of asthma and other chronic lower respiratory diseases; Z87.11 Personal history of peptic ulcer disease; Z88.6 Allergy status to analgesic agent; Z88.5 Allergy status to narcotic agent; Z88.0 Allergy status to penicillin; Z91.018 Allergy to other foods; Z95.0 Presence of cardiac pacemaker; Y92.89 Other specified places as the place of occurrence of the external cause
CPT/HCPCS: 36415; 71045; 78452; 80048; 80053; 83880; 84484; 85025; 85379; 87081; 87635; 93005; 93017; 93306; 97110; 97116; 97162; 99285; A9500; C9803; G0378; J1650; J1940; J2270; J2405; J2785; J3010

== ENCOUNTER 2022-01-31 06:47 | Day surgery (SDC) | payer OTHER ==
[2022-01-28 15:38] LABS: BASOPHILS # (AUTO) 0.1 X10'3 (0-0.2); EOSINOPHILS # (AUTO) 0.7 X10'3 (0-0.9); EOSINOPHILS % (AUTO) 6.2 % (0-6); LYMPHOCYTES # (AUTO) 4.9 X10'3 (1.1-4.8); LYMPHOCYTES % (AUTO) 43.3 % (21-51); MEAN CORPUSCULAR HEMOGLOBIN 31.3 PG (27.0-31.0); MEAN CORPUSCULAR HGB CONC 33.5 g/dL (33.0-36.5); MEAN CORPUSCULAR VOLUME 93.4 FL (78-98); MEAN PLATELET VOLUME 7.3 FL (7.4-10.4); MONOCYTES # (AUTO) 0.6 X10'3 (0-0.9); MONOCYTES % (AUTO) 5.4 % (2-12); NEUTROPHILS % (AUTO) 44.1 % (42-75); PRE OP HEMATOCRIT 43.4 % (42.0-52.0); PRE OP HEMOGLOBIN 14.5 g/dL (14.0-17.9); PRE OP PLATELET COUNT 258 X10'3 (140-440); RED BLOOD COUNT 4.64 X10'6 (4.70-6.10); RED CELL DISTRIBUTION WIDTH 14.1 % (11.5-14.5)
[2022-01-28 15:51] LABS: ALBUMIN 4.4 G/DL (3.4-5.0); ALKALINE PHOSPHATASE 86 IU/L (46-116); BLOOD UREA NITROGEN 15 MG/DL (7-18); BUN/CREATININE RATIO 10.4 (5.4-32.0); CALCIUM 9.8 MG/DL (8.5-10.1); CHLORIDE 105 MMOL/L (99-107); CREATININE 1.44 MG/DL (0.60-1.10); PRE OP ALT 19 U/L (30-65); PRE OP ANION GAP 11 (8-16); PRE OP AST 16 U/L (10-37); PRE OP BILIRUB, TOTAL 0.6 MG/DL (0.0-1.0); PRE OP POTASSIUM 3.4 MMOL/L (3.4-5.1); PRE OP SODIUM 143 MMOL/L (135-145); TOTAL CARBON DIOXIDE 27.4 MMOL/L (24-32); TOTAL PROTEIN 8.7 G/DL (6.4-8.2); eGFR 47 ML/MIN
[2022-01-28 15:55] LABS: PRE OP GLUCOSE 66 MG/DL (70-104)
[2022-01-31] VITALS (20 sets, daily range): BP systolic 160–200; BP diastolic 81–116
[~2022-01-31] VITALS: Ht 165.1 cm; Wt 65.5 kg
[~2022-01-31 06:47] MED LIST changes: -COL100C PO; -DIPH25CA83 PO; +DOCUMENT DATE & TIME OF BETA-BLOCKER PO ONE; -GABA-532 PO; +GABA300C PO; -IBUP-1986 PO; +ISOS30TA9 PO; -MAGN24002 PO; -METH-798 PO; +METO50TA17 PO; -NITR0.4T51 SL; -RANI150T8 PO; -TRIA1CAP6 PO; +clindamycin-Cleocin 900mg/D5W 50 ML IV ONE; +famotidine 20mg tablet PO ONE; +ringers solution, lacted 1,000 ML IV SCH
[2022-01-31] MEDS ORDERED: BUPIVAcaine/PF 2.5 mg/ml (0.25%) 30ml vial ONE (09:10)
[2022-01-31] MEDS ORDERED: LIDOcaine 1% W/epiNEPHrine 1:100,000 20ml vial ONE (09:10)
[2022-01-31] MEDS ORDERED: midazolam 1 mg/ML 2ml injection ONE (09:24)
[2022-01-31] MEDS ORDERED: rocuronium 10mg/ml inj IV ONE (09:24)
[2022-01-31] MEDS ORDERED: fentaNYL/PF 50MCG/1 ML 2ML syringe ONE (09:24)
[2022-01-31] MEDS ORDERED: propofol inj 20 ML IV ONE (09:24)
[2022-01-31] MEDS ORDERED: dexamethasone sod phosphate 4mg/ml inj. ONE (10:55)
[2022-01-31] MEDS ORDERED: glycopyrrolate 0.2mg/ml inj ONE (10:55)
[2022-01-31] MEDS ORDERED: neostigmine methylsulfate 1 MG/ML 10ml vial ONE (10:55)
[2022-01-31] MEDS ORDERED: morphine 4 MG/ML inj SYRINge IV PRN (11:05)
[2022-01-31] MEDS ORDERED: labetalol 20mg/4ml (5mg/ml) syringe IV PRN (11:05)
[2022-01-31] MEDS ORDERED: meperidine/PF 25mg/ml syringe IV PRN ×3 (11:05)
[2022-01-31] MEDS ORDERED: ringers solution, lacted 1,000 ML IV SCH (11:05)
[2022-01-31] MEDS ORDERED: proCHLORperazine 10 MG/2 ml inj IV PRN (11:05)
[2022-01-31] MEDS ORDERED: ondansetron/PF 4mg/2ml inj IV PRN (11:05)
[2022-01-31] MEDS ORDERED: morphine 2 MG/ML inj. syringe IV PRN (11:05)
--- NOTE | 2022-01-31 11:05 | NUR ---
Received from OR via [facility], accompanied by Anesthesiologist ROBER and report given by Anesthesiolgist. PT IS GROGGY BUT WAKAES EASILY TO VERBAL STIMULI. PT PLACED ON BEDSIDE MONTIOR, VSS, PT HYPERTENSIVE, MD AWARE AND PT WAS HYPERTENSIVE PRE-OP. WILL TREAT ORDERED. PT IS IN SR WITH RATE IN 70'S. PT REVEIVING 10L O2 TO MASK AND TOLERATING WELL, O2 SAT >97%, WILL TITRATE DOWN PT TOLERATES. PT HAS 20GPIV TO RT FA WITH LR INFUSING ORDERED. PT HAS 3 BAND-AIDS TO ABD THAT ARE ALL CDI. PT C/O PAIN TO ABD, WILL TREAT ORDERED AND CONTINUE TO ASSESS.
[2022-01-31] MEDS ORDERED: acetaminophen w/codeine (30MG) #3 tablet PO PRN (11:10)
--- NOTE | 2022-01-31 13:39 | NUR ---
BLADDER SCAN PERFORMED AND PT HAD >600ML IN BLADDER. PT ATTEMPTED TO URINATE ON HIS OWN AND ONLY VOIDED 75ML. BLADDER SCAN PERFORMED POST VOID AND RESULTED IN >700ML. GARCÍA CATH PLACED AND 825ML EMPTIED FROM GARCÍA. PT TOLERATED WELL AND EDUCATED ON GARCÍA CARE AND THE NEED FOR IT TO STAY IN PLACE FOR 2 DAYS AND TO FOLLOW UP WITH DR SALAZAR'S OFFICE IN REGARDS TO REMOVAL.
[2022-01-31] MEDS ORDERED: glycopyrrolate 0.2mg/ml inj IV ONE (13:50)
--- NOTE | 2022-01-31 13:50 | NUR ---
ANESTHESIA MADE AWARE OF PT'S HR DROPPING WHILE SLEEPING HEAVILY. WHILE AWAKE HE IS 60'S WHEN SLEEPING IT HAS DROPPED LOW AT 35 AND IS NOT SUSTAINED. BLOOD PRESSURE HAS TOLERATED HR WITH SBP NOT FALLING BELOW 160. ORDER RECEIVED TO GIVE 0.2MG ROBINUL. WILL ADMINISTER SOON AVAILABLE AND CONTINUE TO MONITOR.
--- NOTE | 2022-01-31 14:08 | NUR ---
URVASHIINUL HAS BEEN EFFECTIVE AND PT'S HR HAS BEEN > 70. WILL CONTINUE TO MONITOR.
--- NOTE | 2022-01-31 14:50 | NUR ---
PT HAS MET D/C CRITERIA. IV D/C'D. VSS. DRESSING C/D/I. PT HAS F/C IN PLACE AND HAS BEEN EDUCATED AND TO FOLLOW UP WITH DR SALAZAR'S OFFICE IN 2 DAYS. I HAVE REVIEWED D/C INSTRUCTIONS WITH PATIENT AND SHE HAS VERBALIZED UNDERSTANDING OF INSTRUCTIONS. PATIENT D/C HOME WITH ALL BELONGINGS.
== END 2022-01-31 14:38 | disposition home or self-care (01) ==
LOC: PAS 06:47
PROVIDERS: ATTEND Surgery
DX: K40.90 Unilateral inguinal hernia, without obstruction or gangrene, not specified as recurrent (principal); I25.2 Old myocardial infarction; I11.0 Hypertensive heart disease with heart failure; I50.9 Heart failure, unspecified; Z79.899 Other long term (current) drug therapy; Z98.890 Other specified postprocedural states; I48.91 Unspecified atrial fibrillation; Z88.0 Allergy status to penicillin; Z88.6 Allergy status to analgesic agent; D64.9 Anemia, unspecified; Z91.018 Allergy to other foods
CPT/HCPCS: 36415; 49650; 80053; 82948; 85025; 87811; C1781; J1100; J2175; J2250; J2704; J2710; J3010; J3490; J7030; J7120; S2900; Z7506; Z7508; Z7512; A4215; A4314; A4618

== ENCOUNTER 2023-03-12 10:22 | Outpatient (CLI) | payer OTHER ==
[~2023-03-12 10:22] MED LIST changes: -DOCUMENT DATE & TIME OF BETA-BLOCKER PO ONE; -ISOS30TA9 PO; +METH-798 PO; -METO50TA17 PO; +NITR0.4T48 SL; -clindamycin-Cleocin 900mg/D5W 50 ML IV ONE; -famotidine 20mg tablet PO ONE; -ringers solution, lacted 1,000 ML IV SCH
[2023-03-12 11:00] LABS: BASOPHILS # (AUTO) 0.1 X10'3 (0-0.2); BASOPHILS % (AUTO) 1.1 % (0-1); EOSINOPHILS # (AUTO) 0.3 X10'3 (0-0.9); EOSINOPHILS % (AUTO) 4.8 % (0-6); HEMATOCRIT 38.9 % (42.0-52.0); HEMOGLOBIN 12.8 g/dl (14.0-17.9); LYMPHOCYTES # (AUTO) 1.4 X10'3 (1.1-4.8); LYMPHOCYTES % (AUTO) 24.3 % (21-51); MEAN CORPUSCULAR HEMOGLOBIN 31.4 PG (27.0-31.0); MEAN CORPUSCULAR VOLUME 95.1 FL (78-98); MEAN PLATELET VOLUME 7.2 FL (7.4-10.4); MONOCYTES # (AUTO) 0.4 X10'3 (0-0.9); MONOCYTES % (AUTO) 6.4 % (2-12); NEUTROPHILS # (AUTO) 3.6 X10'3 (1.8-7.7); NEUTROPHILS % (AUTO) 63.4 % (42-75); PLATELET COUNT 215 X10'3 (140-440); RED BLOOD COUNT 4.09 X10'6 (4.70-6.10); RED CELL DISTRIBUTION WIDTH 13.8 % (11.5-14.5); WHITE BLOOD COUNT 5.7 X10'3 (4.5-11.0)
[2023-03-12 11:09] LABS: PROTHROMBIN TIME 10.9 SECONDS (9.0-12.0)
[2023-03-12 11:20] LABS: ALANINE AMINOTRANSFERASE 17 U/L (12-78); ALBUMIN 3.4 G/DL (3.4-5.0); ALBUMIN/GLOBULIN RATIO 0.9 (1.1-1.5); ALKALINE PHOSPHATASE 66 IU/L (46-116); ANION GAP 8 (8-16); ASPARTATE AMINO TRANSFERASE 14 U/L (10-37); BILIRUBIN,TOTAL 0.7 MG/DL (0.1-1.0); BLOOD UREA NITROGEN 15 MG/DL (7-18); BUN/CREATININE RATIO 11.5 (10.0-20.0); CALCIUM 9.2 MG/DL (8.5-10.1); CHLORIDE 102 MMOL/L (99-107); PRO BRAIN NATRIURETIC PEPTIDE 2895 PG/ML (0-450); SODIUM 139 MMOL/L (135-145); TOTAL CARBON DIOXIDE 28.9 MMOL/L (24-32); eGFR 52 ML/MIN
[2023-03-12 11:22] LABS: GLUCOSE 143 MG/DL (70-104)
[2023-03-12] MEDS ORDERED: IODIXANOL 320 MG/ML INFUS..BTL 100ML IV ONE ×2 (11:24)
== END 2023-03-12 23:59 | disposition home or self-care (01) ==
LOC: RAD 10:22
PROVIDERS: ATTEND Internal Medicine Cardiovascular Disease
DX: I08.0 Rheumatic disorders of both mitral and aortic valves (principal); R06.02 Shortness of breath; I65.29 Occlusion and stenosis of unspecified carotid artery; R59.0 Localized enlarged lymph nodes; K83.8 Other specified diseases of biliary tract; M47.814 Spondylosis without myelopathy or radiculopathy, thoracic region; R94.2 Abnormal results of pulmonary function studies
CPT/HCPCS: 36415; 71046; 71275; 74174; 75572; 80053; 83880; 85025; 85610; 94010; 94727; 94729; J3490; Q9967

== ENCOUNTER 2024-03-04 11:30 | Inpatient (IN) | payer OTHER ==
[2024-03-01 12:44] LABS: BILIRUBIN,URINE NEGATIVE (Neg); CLARITY,URINE CLEAR (Clear); COLOR,URINE YELLOW (Yellow); GLUCOSE, URINE NEGATIVE (Neg); KETONES,URINE NEGATIVE (Neg); LEUKOCYTE ESTERASE ,URINE NEGATIVE (Neg); NITRITES, URINE NEGATIVE (Neg); OCCULT BLOOD,URINE NEGATIVE (Neg); PROTEIN,URINE NEGATIVE (Neg); UROBILINOGEN,URINE 0.2 E.U/dL (0.2-1.0)
[2024-03-01 12:49] LABS: UA COLLECTION TYPE VOIDED
[2024-03-01 12:50] LABS: BASOPHILS # (AUTO) 0.1 X10'3 (0-0.2); BASOPHILS % (AUTO) 1.4 % (0-1); EOSINOPHILS # (AUTO) 0.5 X10'3 (0-0.9); EOSINOPHILS % (AUTO) 8.4 % (0-6); LYMPHOCYTES # (AUTO) 1.7 X10'3 (1.1-4.8); LYMPHOCYTES % (AUTO) 29.9 % (21-51); MEAN CORPUSCULAR HEMOGLOBIN 31.8 PG (27.0-31.0); MEAN CORPUSCULAR HGB CONC 33.6 g/dL (33.0-36.5); MEAN CORPUSCULAR VOLUME 94.7 FL (78-98); MONOCYTES # (AUTO) 0.4 X10'3 (0-0.9); MONOCYTES % (AUTO) 7.3 % (2-12); PRE OP HEMATOCRIT 38.6 % (42.0-52.0); PRE OP PLATELET COUNT 167 X10'3 (140-440); PRE OP WHITE BLOOD COUNT 5.6 10'3 (4.8-10.8); RED BLOOD COUNT 4.08 X10'6 (4.70-6.10); RED CELL DISTRIBUTION WIDTH 13.7 % (11.5-14.5)
[2024-03-01 13:15] LABS: PRE OP PROTIME 10.9 SECONDS (9.0-12.0)
[2024-03-01 13:18] LABS: ALBUMIN 3.6 G/DL (3.4-5.0); ALBUMIN/GLOBULIN RATIO 1.1 (1.1-1.5); ALKALINE PHOSPHATASE 67 IU/L (46-116); BLOOD UREA NITROGEN 15 MG/DL (7-18); BUN/CREATININE RATIO 11.4 (10.0-20.0); CALCIUM 8.8 MG/DL (8.5-10.1); CHLORIDE 102 MMOL/L (99-107); CREATININE 1.32 MG/DL (0.60-1.10); PRE OP ALT 13 U/L (30-65); PRE OP ANION GAP 6 (8-16); PRE OP AST 15 U/L (10-37); PRE OP BILIRUB, TOTAL 0.9 MG/DL (0.0-1.0); PRE OP GLUCOSE 101 MG/DL (70-104); PRE OP SODIUM 137 MMOL/L (135-145); PRO BRAIN NATRIURETIC PEPTIDE 4064 PG/ML (0-450); TOTAL CARBON DIOXIDE 29.3 MMOL/L (24-32); TOTAL PROTEIN 6.9 G/DL (6.4-8.2); eGFR 51 ML/MIN
[2024-03-03] MEDS: DOCUMENT DATE & TIME OF BETA-BLOCKER PO ONE (22:30)
[2024-03-04] VITALS (32 sets, daily range): BP systolic 135–204; BP diastolic 66–102; PULSE 58–89; RESP 11–25; TEMP 99.4; O2SAT 93–100
[~2024-03-04] VITALS: Ht 157.5 cm; Wt 65.8 kg
[2024-03-04] MEDS: nitroPRUSSIDE (NIPRIDE) (200MCG/ML) 100ML Drip IV SCH (05:30)
[2024-03-04] MEDS: phenylephrine inj 50 MG in normal saline 250ml IV solN IV SCH (05:30)
[2024-03-04] MEDS: protamine sulfate 10mg/ml inj. ONE (06:36)
[~2024-03-04 11:30] MED LIST changes: -ACET1TAB14 PO; +METO100T14 PO; -NITR0.4T48 SL; +ondansetron/PF 4mg/2ml inj IV PRN
[2024-03-04] MEDS ORDERED: propofol inj 20 ML IV ONE (12:34)
[2024-03-04] MEDS ORDERED: iohexol 350MG/ML 100ml bottle IV ONE (12:56)
[2024-03-04] MEDS ORDERED: heparin 1,000 UNITS/NS 500ml 1,500 ML ONE (12:57)
[2024-03-04] MEDS: vancomycin/NS 1 GM in NS 250 ML IV ONE (13:06)
[2024-03-04] MEDS: clopidogrel 300mg tablet PO ONE (13:06)
[2024-03-04] MEDS: famotidine 20mg tablet PO ONE (13:06)
[2024-03-04] MEDS: ringers solution, lacted 1,000 ML IV SCH (13:06)
[2024-03-04] MEDS ORDERED: fentaNYL/PF 50MCG/1 ML 2ML syringe ONE (13:13)
[2024-03-04] MEDS ORDERED: sevoflurane 250ml liquid IH ONE (13:14)
[2024-03-04] MEDS ORDERED: LIDOcaine 1% (10mg/ml) 2ml vial ONE (13:14)
[2024-03-04] MEDS ORDERED: heparin 1,000unit/ml 10ml vial 10 ML ONE (13:29)
[2024-03-04] MEDS ORDERED: acetaminophen 325mg tablet PO PRN (14:45)
[2024-03-04] MEDS ORDERED: potassium Cl 20mEq/100mL bag 100 ML IV PRN (14:45)
[2024-03-04] MEDS ORDERED: potassium CL 10mEq/100ml bag 100 ML IV PRN (14:45)
[2024-03-04] MEDS ORDERED: magnesium sulf-water 2g/50mL 50 ML IV PRN (14:45)
[2024-03-04] MEDS ORDERED: potassium Cl 20 mEq SR tablet PO PRN (14:45)
[2024-03-04] MEDS ORDERED: diphenhydrAMINE 25mg capsule PO PRN (14:45)
[2024-03-04] MEDS ORDERED: labetalol 20mg/4ml (5mg/ml) syringe IV PRN (14:45)
[2024-03-04] MEDS ORDERED: magnesium sulf-water 4G/100mL 100 ML IV PRN (14:45)
[2024-03-04] MEDS ORDERED: potassium Cl 40MEQ/270ML bag 250 ML IV PRN (14:45)
[2024-03-04] MEDS ORDERED: docusate sod 100mg capsule PO PRN (14:45)
[2024-03-04] MEDS ORDERED: proCHLORperazine 10 MG/2 ml inj IV PRN ×2 (14:45→15:00)
[2024-03-04] MEDS ORDERED: potassium Cl 40MEQ/1/2NS 520ml 520 ML IV PRN (14:45)
[2024-03-04] MEDS ORDERED: ALPRAZolam 0.25mg tablet PO PRN (14:45)
[2024-03-04] MEDS ORDERED: pantoprazole 40mg Tablet.DR PO PRN (14:45)
[2024-03-04] MEDS ORDERED: ondansetron/PF 4mg/2ml inj IV PRN (15:00)
[2024-03-04] MEDS ORDERED: meperidine/PF 25mg/ml syringe IV PRN ×2 (15:00)
[2024-03-04] MEDS ORDERED: ringers solution, lacted 1,000 ML IV SCH (15:00)
[2024-03-04] MEDS ORDERED: morphine 2 MG/ML inj. syringe IV PRN (15:00)
[2024-03-04] MEDS ORDERED: morphine 4 MG/ML inj SYRINge IV PRN (15:00)
[2024-03-04] MEDS: meperidine/PF 25mg/ml syringe IV PRN (15:14)
[2024-03-04] MEDS: sod chloride 0.9% 10ml flush syringe IV SCH (16:00)
[2024-03-04] MEDS: METHOCARBAMOL 750 MG TAB PO SCH (17:00)
[2024-03-04] MEDS: normal saline 1000ml 1,000 ML IV SCH (17:09)
[2024-03-04] MEDS: hydrALAZINE 20mg/ml inj. IV PRN (18:02)
[2024-03-04] MEDS: gabapentin 300mg capsule PO SCH (18:02)
[2024-03-04] MEDS: metoprolol tartrate 50mg tablet PO SCH (19:17)
[2024-03-04] MEDS: vancomycin/NS 1 GM ADD-VANTAGE 250 ML IV SCH (19:40)
[2024-03-04] MEDS: hydrALAZINE 25 MG tablet PO ONE (20:45)
[2024-03-04] MEDS: HYDROcodone/acetaminophen 5mg/325mg tablet PO PRN (21:06)
[2024-03-04] MEDS: losartan 50mg tablet PO ONE (21:06)
[2024-03-04] MEDS: ondansetron/PF 4mg/2ml inj IV PRN (21:12)
[2024-03-05 01:00] VITALS: BP 149/75; PULSE 67; RESP 14; O2SAT 96
[2024-03-05] MEDS: hydrALAZINE 25 MG tablet PO ONE ×2 (01:32→05:10)
[2024-03-05 05:00] VITALS: BP 179/81; PULSE 70; RESP 14; O2SAT 97
[2024-03-05 06:00] VITALS: BP 152/75; PULSE 73; RESP 16; TEMP 97.9; O2SAT 96
[2024-03-05] MEDS: aspirin 81mg tab.chew PO SCH (07:36)
[2024-03-05 08:00] VITALS: RESP 18; O2SAT 99
[2024-03-05 08:30] LABS: ALANINE AMINOTRANSFERASE 13 U/L (12-78); ALBUMIN 3.2 G/DL (3.4-5.0); ALBUMIN/GLOBULIN RATIO 0.9 (1.1-1.5); ALKALINE PHOSPHATASE 63 IU/L (46-116); ANION GAP 7 (8-16); ASPARTATE AMINO TRANSFERASE 23 U/L (10-37); BASOPHILS % (AUTO) 0.5 % (0-1); BILIRUBIN,TOTAL 1.4 MG/DL (0.1-1.0); BLOOD UREA NITROGEN 15 MG/DL (7-18); BUN/CREATININE RATIO 12.8 (10.0-20.0); CALCIUM 8.4 MG/DL (8.5-10.1); CHLORIDE 101 MMOL/L (99-107); CREATININE 1.17 MG/DL (0.60-1.10); EOSINOPHILS % (AUTO) 0.6 % (0-6); GLUCOSE 125 MG/DL (70-104); HEMATOCRIT 41.5 % (42.0-52.0); HEMOGLOBIN 13.9 g/dl (14.0-17.9); LYMPHOCYTES # (AUTO) 0.8 X10'3 (1.1-4.8); LYMPHOCYTES % (AUTO) 10.4 % (21-51); MAGNESIUM 2.1 MG/DL (1.5-2.4); MEAN CORPUSCULAR HEMOGLOBIN 32.1 PG (27.0-31.0); MEAN CORPUSCULAR HGB CONC 33.6 g/dL (33.0-36.5); MEAN CORPUSCULAR VOLUME 95.5 FL (78-98); MEAN PLATELET VOLUME 8.3 FL (7.4-10.4); MONOCYTES # (AUTO) 0.4 X10'3 (0-0.9); MONOCYTES % (AUTO) 5.7 % (2-12); NEUTROPHILS # (AUTO) 6.1 X10'3 (1.8-7.7); NEUTROPHILS % (AUTO) 82.8 % (42-75); PLATELET COUNT 150 X10'3 (140-440); POTASSIUM 3.6 MMOL/L (3.5-5.1); PRO BRAIN NATRIURETIC PEPTIDE 5836 PG/ML (0-450); RED BLOOD COUNT 4.35 X10'6 (4.70-6.10); RED CELL DISTRIBUTION WIDTH 14.3 % (11.5-14.5); SODIUM 135 MMOL/L (135-145); TOTAL CARBON DIOXIDE 26.7 MMOL/L (24-32); TOTAL PROTEIN 6.6 G/DL (6.4-8.2); WHITE BLOOD COUNT 7.4 X10'3 (4.5-11.0); eCRCL 35 ML/MIN; eGFR 59 ML/MIN
[2024-03-05 11:00] VITALS: BP 115/56; PULSE 60; RESP 16; TEMP 97; O2SAT 96
[2024-03-05 15:00] VITALS: BP 110/44; PULSE 63; RESP 17; TEMP 97.8; O2SAT 96
[2024-03-05] MEDS ORDERED: ASPI81TA53 PO (15:41)
== END 2024-03-05 19:20 | disposition home or self-care (01) | DRG 266 ==
LOC: PAS IN 11:43 → UNDOADMIN 11:43 → PCU 3S 19:39 → PAS IN 19:39 → UNDODISIN 03-05 19:20
PROVIDERS: ADMIT Internal Medicine Cardiovascular Disease; ATTEND Internal Medicine Cardiovascular Disease
PROC: 027F3ZZ Dilation of Aortic Valve, Percutaneous Approach (ICD-10-PCS; 2024-03-04)
PROC: B41D1ZZ Fluoroscopy of Aorta and Bilateral Lower Extremity Arteries using Low Osmolar Contrast (ICD-10-PCS; 2024-03-04)
PROC: 02RF38Z Replacement of Aortic Valve with Zooplastic Tissue, Percutaneous Approach (ICD-10-PCS; principal; 2024-03-04 13:14)
DX: I35.0 Nonrheumatic aortic (valve) stenosis (principal); I50.33 Acute on chronic diastolic (congestive) heart failure; C43.9 Malignant melanoma of skin, unspecified; I11.0 Hypertensive heart disease with heart failure; Z79.899 Other long term (current) drug therapy
CPT/HCPCS: 33361; 36415; 71045; 71046; 76937; 80053; 81003; 82948; 83735; 83880; 85025; 85347; 85610; 85730; 86885; 86900; 86901; 86920; 87081; 93005; 93308; A4615; A4618; A6209; A6258; A6449; C1756; C1760; C1769; C1894; G0378; J0360; J1644; J2175; J2371; J2405; J2704; J2720; J3010; J3370; J3490; J7030; J7040; J7050; J7120; Q9967